=== PATIENT | female | born 1960 | race Caucasian/White ===

== ENCOUNTER 2021-06-10 00:46 | Day surgery (SDC) | payer OTHER, SELFPAY ==
[2021-05-24 15:57] VITALS: BMI 38.6
--- NOTE | 2021-06-09 16:41 | PM.HPGS ---
History of Present Illness History of Present Illness Consent: Risks, benefits, and alternatives have been discussed and questions answered. Patient agrees to proceed with procedure. Chief complaint: hx of colon polyps, neoplasm screening Narrative: Kat Joya is a 60 year old female referred for colon cancer screening Review of Systems Review of Systems: All systems reviewed & are unremarkable except as noted in HPI and below PMFSH Past Medical History Medical History Fibromyalgia Hx of adenomatous colonic polyps Social History Social History Smoking status: Never smoker Alcohol intake: current Alcohol use details: Socially Substance use: never Living arrangements: with family Spiritual care concerns: No Meds Home Medications and Allergies Home Medications Medication Instructions Recorded Confirmed Type citalopram 40 mg tablet 40 mg PO DAILY tablet 05/06/21 05/24/21 History Allergies Allergy/AdvReac Type Severity Reaction Status Date / Time No Known Allergies Allergy Unverified 06/10/21 11:45 Exam Resp: Auscultation: clear to auscultation bilaterally Cardio: Rate: regular rate Rhythm: regular rhythm GI: GI Palp: Yes Soft to palpation and No Tenderness to palpation present (GI) Assessment and Plan Assessment and plan (1) Colon cancer screening: Code(s): Z12.11 - Encounter for screening for malignant neoplasm of colon Status: Acute Assessment and Plan: Colonoscopy with possible biopsy or polypectomy or cautery or injection of substances.
[2021-06-10 11:49] VITALS: BP 149/92; PULSE 91; RESP 18; TEMP 36.4; O2SAT 97
[2021-06-10] MEDS: LACTATED RINGERS 1,000 ML 150 ML IV CONT (11:58)
--- NOTE | 2021-06-10 12:37 | P.PNAN_ITS ---
Anes - Initial Pre Proc Eval Procedure: Operation Date: 06/10/21 13:00 Proposed Procedures p Screening Colonoscopy - Carlos Roe MD Date/Time: 06/10/21 12:37 Surgeon: Carlos Roe MD Pre Op Diagnosis: hx of colon polyps, neoplasm screening Patient Data Age: 60 Gender: F Height: 1.6 m Weight: 99.7 kg Last Vital Signs Temp 97.6 F 06/10/21 11:49 Pulse 91 06/10/21 11:49 Resp 18 06/10/21 11:49 BP 149/92 H 06/10/21 11:49 Pulse Ox 97 06/10/21 11:49 Allergies Allergy/AdvReac Type Severity Reaction Status Date / Time No Known Allergies Allergy Unverified 06/10/21 11:45 Home Medications Medication Instructions Recorded Confirmed Type citalopram 40 mg tablet 40 mg PO DAILY tablet 05/06/21 05/24/21 History Patient hx anesthesia problems: none Family hx anesthesia problems: none Results Review: All pre-operative results and documents have been reviewed as part of the pre-operative evaluation. [facility] Past Medical History Medical History Fibromyalgia Hx of adenomatous colonic polyps Social History Social History Smoking status: Never smoker Alcohol intake: current Alcohol use details: Socially Substance use: never Living arrangements: with family Spiritual care concerns: No Anes - Eval Final PreProcedure Day of Procedure 06/10/21 12:37 Patient weight: obese Heart: regular rate and rhythm Lungs: clear to auscultation Airway: Mallampati scale class II Neurological: alert and oriented Last oral intake: >/= 8 hours ASA classification: II Emergent: no Anesthetic plan: proceed Anesthesia type and monitoring: general GIVS and standard monitoring Results Review: All pre-operative results and documents have been reviewed as part of the pre-operative evaluation. Informed Consent: The patient's anesthetic plan and its attendant risks and benefits were discussed with the patient/family/POA. Questions were solicited and answers provided to the satisfaction of the patient/family/POA.
[2021-06-10 12:59] VITALS: BP 103/59; PULSE 87; RESP 16; O2SAT 96
[2021-06-10 13:09] VITALS: BP 122/73; PULSE 76; RESP 16; O2SAT 100
[2021-06-10 13:19] VITALS: BP 132/77; PULSE 70; RESP 20; O2SAT 98
== END 2021-06-10 13:30 | disposition home or self-care (01) ==
PROVIDERS: PCP Internal Medicine; Visit Provider Internal Medicine Gastroenterology
PROC: 0DJD8ZZ Inspection of Lower Intestinal Tract, Via Natural or Artificial Opening Endoscopic (ICD-10-PCS; CPT 45378; principal; 2021-06-10 13:00)
DX: Z12.11 Encounter for screening for malignant neoplasm of colon (principal); D12.5 Benign neoplasm of sigmoid colon; E66.9 Obesity, unspecified; Z68.38 Body mass index [BMI] 38.0-38.9, adult
CPT/HCPCS: 45385; 88305; J2704; J7120

== ENCOUNTER 2023-03-10 07:34 | Outpatient (CLI) | payer BC, SELFPAY ==
--- NOTE | ~2023-03-10 | PE_ITS ---
EXAMINATION: PET skull to mid thigh DATE: 03/10/2023 09:36 INDICATION: Solitary pulmonary nodule TECHNIQUE: Blood glucose level was 90 mg/dL. 9.413 mCi of 18-fluorodeoxyglucose (18-FDG) was administ ered i.v. Low dose computed tomography (CT) images were acquired from the base of the brain to the pr oximal thighs for attenuation correction and anatomic localization. Positron emission tomography (PET ) images were acquired in the same distribution beginning 54 minutes after injection. Images includin g fused PET/CT images were reconstructed in axial, coronal, and sagittal planes. Automated exposure c ontrol technique was employed. The dose-length product was 1196.38mGy-cm. COMPARISON: None FINDINGS: Head/neck: There is symmetric increased activity in the oral cavity, laryngeal muscles, longus capitis muscles a nd ocular muscles without CT correlate, likely physiologic. No pathologically enlarged cervical lymph adenopathy or suspicious foci of increased FDG uptake in the visualized head or neck. Chest: No evident FDG uptake associated with an 11 mm nodule in the right middle lobe. Additional approximat [place] 8 mm nodular opacity along a small band of discoid atelectasis in the more cephalad right middle lobe with a couple 5 mm 6 mm nodule in the right minor fissure the latter likely representing intrafi ssural lymph nodes. All are without discernible FDG uptake. Mild discoid atelectasis at the lingula. No other suspicious pulmonary nodules, pneumonia or pleural effusion. Heart size is normal. No perica rdial effusion. Thoracic aorta is normal in caliber. Calcified subcarinal lymph nodes consistent with old granulomatous disease. No pathologically enlarged or FDG avid thoracic lymphadenopathy. Abdomen/pelvis/proximal thighs: Physiologic renal accumulation and excretion of FDG activity in the kidneys, bladder and along portio ns of ureters. Normal degree and heterogenous pattern of increased uptake throughout the liver withou t radiologic correlate or dominant FDG avid lesion. The gallbladder, pancreas, spleen and bilateral a drenal glands are normal. Mild uptake scattered throughout the bowels without radiologic correlate, a lso likely physiologic. Uterus and bilateral adnexa are unremarkable. No other abnormal foci of incre ased FDG uptake or pathologically enlarged lymphadenopathy in the abdomen, pelvis or proximal thighs. Musculoskeletal: There is mild likely synovial uptake and severe glenohumeral osteoarthritis at both shoulders. There is likely physiologic mild uptake without radiologic correlate at the bilateral rotator cuff musculat ure as well as a posterior paraspinal musculature in the lumbar and lower thoracic regions. No suspic ious lytic, blastic or abnormally FDG avid bone lesions. IMPRESSION: 1. No abnormal FDG uptake associated with a couple right middle lobe nodules measuring 11 mm and 8 mm . While reassuring this does not absolutely exclude malignancy and would recommend CT follow-up in 3- 6 months with comparison with any prior outside cross-sectional imaging. 2. No other lesions suspicious for malignancy/metastatic disease. Reviewed, dictated and finalized at location A. [employer] IMPRESSION: 1. No abnormal FDG uptake associated with a couple right middle lobe nodules me asuring 11 mm and 8 mm. While reassuring this does not absolutely exclude malig renae and would recommend CT follow-up in 3-6 months with comparison with any p rior outside cross-sectional imaging. 2. No other lesions suspicious for malignancy/metastatic disease.
[2023-03-10 08:00] LABS: Glucose Point of Care 90 mg/dl (65-105)
== END 2023-03-10 07:35 | disposition home or self-care (01) ==
PROVIDERS: PCP Internal Medicine; Visit Provider Internal Medicine
DX: R91.1 Solitary pulmonary nodule (principal)
CPT/HCPCS: 78815; A9552